=== PATIENT | male | born 1985 | race Caucasian/White ===

== ENCOUNTER 2019-10-15 09:44 | Inpatient (IN) | payer OTHER ==
[~2019-10-15] VITALS: Ht 170.2 cm; Wt 85.0 kg
[2019-10-15 09:52] VITALS: Ht 170.2 cm; Wt 85.0 kg
[2019-10-15 10:19] LABS: PLATELET COUNT 117 x10^3mcL (130-400)
[2019-10-15 11:01] LABS: CHLORIDE SERUM 91 mmol/L (98-107); CREATININE SERUM 0.6 mg/dL (0.7-1.3); GFR1 > 60 mL/min; GLUCOSE SERUM 93 mg/dL (74-106); POTASSIUM SERUM 4.5 mmol/L (3.5-5.1); SODIUM SERUM 127 mmol/L (136-145)
[2019-10-15 11:06] LABS: ALBUMIN 3.4 g/dL (3.4-5.0); ALKALINE PHOSPHATASE 108 U/L (46-116); ALT/SGPT 16 U/L (16-63); AST/SGOT 19 U/L (15-37); BILIRUBIN TOTAL 0.3 mg/dL (0.20-1.00)
[2019-10-15 11:57] LABS: AMPHETAMINE QUAL UR NONE DETECTED (See below)
[2019-10-15] MEDS ORDERED: MELATONIN 3 MG1 EACH PO (13:06)
[2019-10-15] MEDS ORDERED: DEPAKOTE125 MG PO (13:08)
[2019-10-15] MEDS ORDERED: APAP325 MG PO (13:09)
[2019-10-15] MEDS ORDERED: TRAZODONE150 M1 PO (13:11)
[2019-10-15 14:05] LABS: MAGNESIUM 1.6 mg/dL (1.8-2.4)
[2019-10-15 14:15] LABS: CHOLESTEROL/HDL RATIO 3.1
[2019-10-15 15:00] VITALS: BP 122/75
[2019-10-15 15:35] LABS: microscopic required? NO
[2019-10-15 15:41] LABS: urine erythrocyte NEGATIVE (NEGATIVE)
[2019-10-15 19:21] VITALS: BP 116/68
[2019-10-15 21:49] LABS: CALCIUM 8.8 mg/dL (8.5-10.1); CARBON DIOXIDE 27.7 mmol/L (21-32); CHLORIDE SERUM 99 mmol/L (98-107); CREATININE SERUM 0.8 mg/dL (0.7-1.3); GFR1 > 60 mL/min; GLUCOSE SERUM 95 mg/dL (74-106); POTASSIUM SERUM 4.1 mmol/L (3.5-5.1); SODIUM SERUM 135 mmol/L (136-145)
[2019-10-16 05:18] VITALS: BP 105/65
[2019-10-16 07:09] LABS: BASOPHIL % 0.2 % (0-2); PLATELET COUNT 152 x10^3mcL (130-400); RED CELL DISTRIBUTION WIDTH 13.3 % (11.5-14.5)
[2019-10-16 07:20] LABS: CALCIUM 9.2 mg/dL (8.5-10.1); CARBON DIOXIDE 24.2 mmol/L (21-32); CHLORIDE SERUM 98 mmol/L (98-107); CREATININE SERUM 0.6 mg/dL (0.7-1.3); GFR1 > 60 mL/min; GLUCOSE SERUM 77 mg/dL (74-106); POTASSIUM SERUM 4.1 mmol/L (3.5-5.1); SODIUM SERUM 134 mmol/L (136-145)
[2019-10-16 08:15] VITALS: BP 104/71
[2019-10-16 13:16] VITALS: BP 123/83
[2019-10-16 18:08] VITALS: BP 113/74
[2019-10-16 20:16] VITALS: BP 127/70
[2019-10-17 06:37] LABS: BASOPHIL % 0.3 % (0-2); PLATELET COUNT 167 x10^3mcL (130-400); RED CELL DISTRIBUTION WIDTH 12.9 % (11.5-14.5)
[2019-10-17 06:51] LABS: CALCIUM 8.9 mg/dL (8.5-10.1); CARBON DIOXIDE 27.5 mmol/L (21-32); CHLORIDE SERUM 98 mmol/L (98-107); CREATININE SERUM 0.7 mg/dL (0.7-1.3); GFR1 > 60 mL/min; GLUCOSE SERUM 95 mg/dL (74-106); MAGNESIUM 1.9 mg/dL (1.8-2.4); POTASSIUM SERUM 3.4 mmol/L (3.5-5.1); SODIUM SERUM 132 mmol/L (136-145)
[2019-10-17 08:17] VITALS: BP 104/63
[2019-10-17 11:43] VITALS: BP 105/65
[2019-10-17 16:51] VITALS: BP 114/72
[2019-10-18 06:14] VITALS: BP 111/78
[2019-10-18 06:25] LABS: CALCIUM 8.9 mg/dL (8.5-10.1); CARBON DIOXIDE 26.2 mmol/L (21-32); CHLORIDE SERUM 95 mmol/L (98-107); CREATININE SERUM 0.7 mg/dL (0.7-1.3); GFR1 > 60 mL/min; GLUCOSE SERUM 87 mg/dL (74-106); SODIUM SERUM 130 mmol/L (136-145)
[2019-10-18 11:58] VITALS: BP 109/73
[2019-10-18 17:03] VITALS: BP 119/79
[2019-10-18 21:30] VITALS: BP 126/74
[2019-10-18 22:02] VITALS: BP 118/73
[2019-10-19 05:20] VITALS: BP 111/77
[2019-10-19 07:10] LABS: CALCIUM 8.9 mg/dL (8.5-10.1); CARBON DIOXIDE 24.7 mmol/L (21-32); CHLORIDE SERUM 88 mmol/L (98-107); CREATININE SERUM 0.5 mg/dL (0.7-1.3); GFR1 > 60 mL/min; GLUCOSE SERUM 93 mg/dL (74-106); POTASSIUM SERUM 4.1 mmol/L (3.5-5.1)
[2019-10-19 07:43] LABS: SODIUM SERUM 120 mmol/L (136-145)
[2019-10-19 08:08] VITALS: BP 97/52
[2019-10-19 11:37] LABS: CALCIUM 8.2 mg/dL (8.5-10.1); CARBON DIOXIDE 24.7 mmol/L (21-32); CHLORIDE SERUM 90 mmol/L (98-107); CREATININE SERUM 0.6 mg/dL (0.7-1.3); GFR1 > 60 mL/min; GLUCOSE SERUM 103 mg/dL (74-106); POTASSIUM SERUM 4.1 mmol/L (3.5-5.1)
[2019-10-19 11:50] LABS: SODIUM SERUM 121 mmol/L (136-145)
[2019-10-19 12:17] VITALS: BP 95/43
[2019-10-19 16:20] VITALS: BP 113/69
[2019-10-19 19:52] VITALS: BP 121/76
[2019-10-19 20:35] LABS: CALCIUM 8.2 mg/dL (8.5-10.1); CARBON DIOXIDE 25.2 mmol/L (21-32); CHLORIDE SERUM 89 mmol/L (98-107); CREATININE SERUM 0.6 mg/dL (0.7-1.3); GFR1 > 60 mL/min; GLUCOSE SERUM 122 mg/dL (74-106); POTASSIUM SERUM 4.2 mmol/L (3.5-5.1)
[2019-10-19 20:37] LABS: SODIUM SERUM 121 mmol/L (136-145)
[2019-10-20 04:26] VITALS: BP 126/73
[2019-10-20 04:55] VITALS: BP 101/66
[2019-10-20 06:57] LABS: CALCIUM 8.5 mg/dL (8.5-10.1); CARBON DIOXIDE 23.2 mmol/L (21-32); CHLORIDE SERUM 88 mmol/L (98-107); CREATININE SERUM 0.6 mg/dL (0.7-1.3); GFR1 > 60 mL/min; GLUCOSE SERUM 86 mg/dL (74-106); MAGNESIUM 1.8 mg/dL (1.8-2.4); PHOSPHOROUS 4.4 mg/dL (2.5-4.9); POTASSIUM SERUM 4.1 mmol/L (3.5-5.1)
[2019-10-20 07:02] LABS: SODIUM SERUM 122 mmol/L (136-145)
[2019-10-20 09:00] VITALS: BP 115/76
[2019-10-20 18:39] VITALS: BP 128/78
[2019-10-20 20:18] LABS: CALCIUM 8.6 mg/dL (8.5-10.1); CARBON DIOXIDE 23.2 mmol/L (21-32); CHLORIDE SERUM 88 mmol/L (98-107); CREATININE SERUM 0.7 mg/dL (0.7-1.3); GFR1 > 60 mL/min; GLUCOSE SERUM 114 mg/dL (74-106); POTASSIUM SERUM 4.3 mmol/L (3.5-5.1)
[2019-10-20 20:19] LABS: SODIUM SERUM 122 mmol/L (136-145)
[2019-10-20 20:30] VITALS: BP 115/75
[2019-10-21 06:16] VITALS: BP 126/68
[2019-10-21 07:00] LABS: CALCIUM 8.3 mg/dL (8.5-10.1); CHLORIDE SERUM 95 mmol/L (98-107); CREATININE SERUM 0.5 mg/dL (0.7-1.3); GFR1 > 60 mL/min; GLUCOSE SERUM 104 mg/dL (74-106); POTASSIUM SERUM 4.1 mmol/L (3.5-5.1); SODIUM SERUM 127 mmol/L (136-145)
[2019-10-21 07:31] LABS: FREE T4 1.06 ng/dL (0.76-1.46); MAGNESIUM 1.8 mg/dL (1.8-2.4); PHOSPHOROUS 4.5 mg/dL (2.5-4.9)
[2019-10-21 08:30] VITALS: BP 112/72
[2019-10-21 11:54] LABS: URIC ACID 2.2 mg/dL (3.5-7.2)
[2019-10-21 12:58] VITALS: BP 122/80
[2019-10-21 21:50] VITALS: BP 121/71
[2019-10-22 06:43] VITALS: BP 110/51
[2019-10-22 06:51] LABS: CALCIUM 8.9 mg/dL (8.5-10.1); CARBON DIOXIDE 26.2 mmol/L (21-32); CHLORIDE SERUM 95 mmol/L (98-107); CREATININE SERUM 0.7 mg/dL (0.7-1.3); GFR1 > 60 mL/min; GLUCOSE SERUM 103 mg/dL (74-106); POTASSIUM SERUM 3.9 mmol/L (3.5-5.1); SODIUM SERUM 129 mmol/L (136-145)
[2019-10-22 07:15] LABS: PHOSPHOROUS 5.5 mg/dL (2.5-4.9)
[2019-10-22 17:49] VITALS: BP 108/74
[2019-10-22 21:03] VITALS: BP 114/72
[2019-10-23 04:47] VITALS: BP 101/53
[2019-10-23 07:13] LABS: CALCIUM 8.7 mg/dL (8.5-10.1); CARBON DIOXIDE 24.8 mmol/L (21-32); CHLORIDE SERUM 95 mmol/L (98-107); CREATININE SERUM 0.7 mg/dL (0.7-1.3); GFR1 > 60 mL/min; GLUCOSE SERUM 88 mg/dL (74-106); POTASSIUM SERUM 3.6 mmol/L (3.5-5.1); SODIUM SERUM 130 mmol/L (136-145)
[2019-10-23 07:22] LABS: MAGNESIUM 1.8 mg/dL (1.8-2.4); PHOSPHOROUS 5.1 mg/dL (2.5-4.9)
[2019-10-23 09:16] VITALS: BP 124/56
[2019-10-23 13:19] VITALS: BP 116/79
[2019-10-23 19:23] VITALS: BP 111/72
[2019-10-24 06:33] VITALS: BP 115/73
[2019-10-24 06:41] LABS: CALCIUM 9.4 mg/dL (8.5-10.1); CARBON DIOXIDE 24.4 mmol/L (21-32); CHLORIDE SERUM 92 mmol/L (98-107); CREATININE SERUM 0.6 mg/dL (0.7-1.3); GFR1 > 60 mL/min; GLUCOSE SERUM 93 mg/dL (74-106); POTASSIUM SERUM 3.9 mmol/L (3.5-5.1); SODIUM SERUM 127 mmol/L (136-145)
[2019-10-24 08:34] VITALS: BP 120/76
[2019-10-24 12:28] VITALS: BP 110/76
[2019-10-24 19:59] VITALS: BP 125/79
[2019-10-25 05:53] VITALS: BP 107/76
[2019-10-25 08:03] LABS: CARBON DIOXIDE 26.1 mmol/L (21-32); CHLORIDE SERUM 94 mmol/L (98-107); CREATININE SERUM 0.7 mg/dL (0.7-1.3); GFR1 > 60 mL/min; GLUCOSE SERUM 93 mg/dL (74-106); POTASSIUM SERUM 4.2 mmol/L (3.5-5.1); SODIUM SERUM 130 mmol/L (136-145)
[2019-10-25 09:58] VITALS: BP 125/64
[2019-10-25 13:58] VITALS: BP 109/67
[2019-10-25 17:35] VITALS: BP 111/60
[2019-10-25 20:58] VITALS: BP 123/71
[2019-10-26 05:51] VITALS: BP 130/83
[2019-10-26 06:42] LABS: CALCIUM 9.4 mg/dL (8.5-10.1); CHLORIDE SERUM 99 mmol/L (98-107); CREATININE SERUM 0.8 mg/dL (0.7-1.3); GFR1 > 60 mL/min; GLUCOSE SERUM 85 mg/dL (74-106); MAGNESIUM 2.2 mg/dL (1.8-2.4); POTASSIUM SERUM 4.2 mmol/L (3.5-5.1); SODIUM SERUM 135 mmol/L (136-145)
[2019-10-26 07:05] LABS: BASOPHIL % 0.3 % (0-2); PLATELET COUNT 296 x10^3mcL (130-400); RED CELL DISTRIBUTION WIDTH 13.5 % (11.5-14.5)
[2019-10-26 08:00] VITALS: BP 105/61
[2019-10-26 12:43] VITALS: BP 112/55
[2019-10-26 17:35] VITALS: BP 112/72
[2019-10-26 21:22] VITALS: BP 110/60
[2019-10-27 06:24] VITALS: BP 122/50
[2019-10-27 08:53] VITALS: BP 118/74
[2019-10-27] MEDS ORDERED: SOD1 PO (10:05)
[2019-10-27] MEDS ORDERED: ZYP5 PO (10:06)
[2019-10-27] MEDS ORDERED: VITAMIN B-650 M1 PO (10:06)
[2019-10-27 10:23] VITALS: BP 118/74
[2019-10-27] MEDS ORDERED: ZYPREXA5 M1 PO (10:31)
[2019-10-27 14:38] LABS: CALCIUM 9.3 mg/dL (8.5-10.1); CARBON DIOXIDE 25.1 mmol/L (21-32); CHLORIDE SERUM 99 mmol/L (98-107); GFR1 > 60 mL/min; GLUCOSE SERUM 134 mg/dL (74-106); POTASSIUM SERUM 3.8 mmol/L (3.5-5.1); SODIUM SERUM 136 mmol/L (136-145)
[2019-10-27 17:36] VITALS: BP 97/56
== END 2019-10-27 20:36 | DRG 52 ==
LOC: ED 09:44 → DU 13:03 → MU 10-17 17:16 → DU 10-19 07:55
PROVIDERS: Emergency Medicine; Family Medicine; Internal Medicine; Student in an Organized Health Care Education/Training Program; ADMIT Internal Medicine
DX: G93.41 Metabolic encephalopathy (principal); E87.1 Hypo-osmolality and hyponatremia; G40.909 Epilepsy, unspecified, not intractable, without status epilepticus; F23 Brief psychotic disorder
CPT/HCPCS: 84439; G0378; G0480; J1630; J2060; J3486; J7030; Q0092